=== PATIENT | female | born 1995 | race Caucasian/White ===

== ENCOUNTER 2018-03-15 10:45 | Outpatient (REF) | payer BC, SELFPAY ==
[2018-03-15 19:23] LABS: HCG Qual (Serum) Negative
== END 2018-03-15 11:05 ==
LOC: NCHCN 10:45
PROVIDERS: PCP Physician Assistant Medical; Visit Provider Physician Assistant Medical
DX: N91.2 Amenorrhea, unspecified (principal)
CPT/HCPCS: 84703

== ENCOUNTER 2018-07-03 20:27 | Outpatient (REF) | payer BC, SELFPAY ==
[2018-07-03 20:29] LABS: Bacteria Few HPF (Negative); C & S Indicated? Yes; Crystals Negative HPF (Negative); Epithelial Cells Few HPF (Negative); Mucus Trace (Negative); RBC Negative (0-2)
== END 2018-07-03 20:47 ==
LOC: NCHCN 20:27
PROVIDERS: PCP Physician Assistant Medical; Visit Provider Specialist/Technologist Athletic Trainer
DX: R10.11 Right upper quadrant pain (principal)
CPT/HCPCS: 81015; 87086

== ENCOUNTER 2018-11-05 17:17 | Emergency (ER) | payer BC, SELFPAY ==
[2018-11-05 17:21] VITALS: BP 139/75; PULSE 61; RESP 12; TEMP 36.8; O2SAT 99
--- NOTE | 2018-11-05 17:23 | DI.RAD_ITS ---
SYMPTOMS/DIAGNOSIS: PAIN AFTER BLUNT TRAUMA LEFT FOOT: Soft tissue swelling is noted over the dorsolateral portion of the foot. No fracture or dislocation is identified.
--- NOTE | 2018-11-05 17:25 | ED.GENADUL_ITS ---
Discharge Plan Disposition Patient Disposition: HOME Condition: Improving Discharge Details Chief Complaint: Orthopedic Clinical Impression: Strain of left foot Primary Care Provider: Ellyn Arriaza ED Provider: John Navarrete Home Meds and New Rx's Prescriptions: No Action No Known Home Meds RF: 0 Discharge Instructions Additional Instructions: Rest, ice, elevation and with compression to reduce pain and swelling. You may have ongoing spreading of the bruising. Wear hard soled shoe as needed for comfort. Tylenol 650 to 975 mg every 6 hours with ibuprofen 800 mg every 8 hours as needed for pain Medical Decision Making 22-year-old female presents from home with day 4 of left foot aching pain since dropping a hard piece of metal on it in her garage at the end of last week. Referred for x-ray which reveals soft tissue swelling but no underlying fracture. Will treat with Benjamín bandage, hard soled shoe. She is stable for discharge to home HPI General Mode of arrival: ambulatory . Date/Time Provider Initiated Documentation: 11/05/18 17:20 . Limitations to Documentation: no limitations . Information obtained by: patient . History of Present Illness 22 year old F presents to the emergency department with the chief complaint of Left foot pain and swelling after blunt trauma, described as moderate, Quality is described as aching and dull, and is localized to the lower extremity. Patient reports no radiation. Patient started experiencing this day(s) and it has been constant. No relieving factors improve symptom(s), No exacerbating factors reported . Patient notes no other symptoms.. Patient did receive the following treatments prior to arrival, NSAID Related Data Home Medications Medication Instructions Recorded Confirmed Unknown [No Known Home Meds] 11/05/18 11/05/18 Allergies Allergy/AdvReac Type Severity Reaction Status Date / Time No Known Allergies Allergy Unverified 11/05/18 17:24 General Stated Complaint: Orthopedic COURTNEY: 4 Review of Systems Review of Systems No other injury. Patient has otherwise been well [facility] Social History Smoking/Tobacco Use Status: Never Drug use: Never Substance use type: does not use Do you feel safe at home: Yes Do you feel safe in your relationship?: Yes Exam Narrative Exam Narrative: GEN: awake, alert, oriented 3. Pleasant, well groomed, interactive. HEAD: Normocephalic, atraumatic EXT: Full ROM, left foot dorsum with area of ecchymosis and tenderness of the midfoot Neuro: Grossly normal neurologic exam, conversant, interactive. Psych: Speech fluent, thoughts congruent, affect normal Course Vital Signs Temperature 36.8 C 11/05/18 17:21 Pulse 61 11/05/18 17:21 Respiratory Rate 12 11/05/18 17:21 Blood Pressure 139/75 11/05/18 17:21 Pulse Oximetry 99 11/05/18 17:21 Temperature 36.8 C 11/05/18 17:21 Pulse 61 11/05/18 17:21 Respiratory Rate 12 11/05/18 17:21 Respiratory Effort Non-Labored 11/05/18 17:22 Blood Pressure 139/75 11/05/18 17:21 Blood Pressure Position Sitting 11/05/18 17:21 Pulse Oximetry 99 11/05/18 17:21 Oxygen Delivery Method Room Air 11/05/18 17:21 Oxygen Flow Rate 0 11/05/18 17:21 Pain Level 5 11/05/18 17:23
--- NOTE | 2018-11-05 18:38 | DI.VRAD_ITS ---
EXAM: XR Left Foot Complete EXAM DATE/TIME: 11/05/2018 5:24 PM CLINICAL HISTORY: 22 years old, female; Other: Pain after blunt trauma; Additional info: Pain after blunt trauma , pain and swollen mid foot TECHNIQUE: Imaging protocol: XR Left foot. Views: 3 or more views. COMPARISON: No relevant prior studies available. FINDINGS: Bones/joints: Normal. Soft tissues: Soft tissue swelling is noted overlying the dorsum of the foot. IMPRESSION: Soft tissue swelling without evidence of underlying fracture. Dictated and Authenticated by: Prabha Newton MD. Ordering:CR Lopez MD
== END 2018-11-05 19:25 | disposition home or self-care (01) ==
PROVIDERS: Emergency Provider Emergency Medicine; PCP Physician Assistant Medical
DX: S96.912A Strain of unspecified muscle and tendon at ankle and foot level, left foot, initial encounter (principal); W20.8XXA Other cause of strike by thrown, projected or falling object, initial encounter
CPT/HCPCS: 99283; 73630

== ENCOUNTER 2019-01-15 20:50 | Outpatient (REF) | payer BC, SELFPAY ==
[2019-01-15 20:45] LABS: Hemoglobin A1C 5.5 % (4.5-6.2)
[2019-01-15 20:52] LABS: TSH (W/Ref FT4) 1.23 uIU/mL (0.36-3.74)
== END 2019-01-15 21:10 ==
LOC: NCHCN 20:50
PROVIDERS: PCP Physician Assistant Medical; Visit Provider Physician Assistant Medical
DX: R53.83 Other fatigue (principal); F41.9 Anxiety disorder, unspecified
CPT/HCPCS: 83036; 84443

== ENCOUNTER 2019-10-01 19:06 | Outpatient (REF) | payer BC, SELFPAY | END 2019-10-01 19:26 | LOC: NCHCN 19:06 | PROVIDERS: PCP Physician Assistant Medical; Visit Provider Physician Assistant Medical | DX: N39.0 Urinary tract infection, site not specified (principal) | CPT/HCPCS: 87077; 87086; 87186 ==

== ENCOUNTER 2020-01-20 15:49 | Outpatient (REF) | payer BC, SELFPAY ==
[2020-01-22 04:18] LABS: Patient Race White; SARS-CoV-2 RNA Undetected (Undetected); SARS-CoV-2 Specimen Source Nasopharynx
== END 2020-01-20 16:09 ==
LOC: NCHCN 15:49
PROVIDERS: PCP Physician Assistant Medical; Visit Provider Nurse Practitioner Family
DX: J34.89 Other specified disorders of nose and nasal sinuses (principal)
CPT/HCPCS: U0003

== ENCOUNTER 2020-02-10 11:58 | Outpatient (REF) | payer BC, SELFPAY ==
[2020-02-10 19:35] LABS: HCG Qual (Serum) Negative
== END 2020-02-10 12:18 ==
LOC: NCHCN 11:58
PROVIDERS: PCP Physician Assistant Medical; Visit Provider Physician Assistant Medical
DX: N91.2 Amenorrhea, unspecified (principal)
CPT/HCPCS: 84703

== ENCOUNTER 2020-06-15 16:42 | Outpatient (REF) | payer BC, SELFPAY | END 2020-06-15 16:43 | disposition home or self-care (01) | LOC: NCHCN 16:42 | PROVIDERS: PCP Physician Assistant Medical; Visit Provider Physician Assistant Medical | DX: N89.8 Other specified noninflammatory disorders of vagina (principal) | CPT/HCPCS: 87480; 87510; 87660 ==

== ENCOUNTER 2020-07-13 10:15 | Outpatient (REF) | payer BC, SELFPAY ==
--- NOTE | 2020-07-13 09:30 | PAPFT_PTH ---
PATIENT: Milagro Shah LOC: [facility] U#:[id number] AGE/SX: 24/F ROOM: RE07/13/[address]: Marisa Bonilla NP : 1995 BED: DIS: 07/13/2020 SPEC #: [id number] RECD: 07/13/20 12:55 STATUS: ANASTASIYA RILEY #: [id number] SCOTT: 07/13/20 09:[address]: Marisa Bonilla NP [facility] Cytology RECD BY: Karen Dawson ENTERED: 07/13/20 12:55 SP TYPE: PAPFT OTHR DR: Ellyn Arriaza Tissues: 1 - CX/ENDOCX FOR PAP SMEARS Procedures: PAP THIN PREP/[facility] Screening Comments: [id number] (CHLAMYDIA/GC)
[2020-07-14 15:01] LABS: Chlamydia Result Negative (Negative); GC Result Negative (Negative)
== END 2020-07-13 10:16 | disposition home or self-care (01) ==
LOC: LBN 10:15
PROVIDERS: PCP Physician Assistant Medical; Visit Provider Nurse Practitioner Women's Health
DX: Z12.4 Encounter for screening for malignant neoplasm of cervix (principal); Z11.3 Encounter for screening for infections with a predominantly sexual mode of transmission; R87.612 Low grade squamous intraepithelial lesion on cytologic smear of cervix (LGSIL)
CPT/HCPCS: 87491; 87591; 88142

== ENCOUNTER 2021-01-31 10:47 | Outpatient (REF) | payer BC, SELFPAY | END 2021-01-31 10:48 | disposition home or self-care (01) | LOC: NCHCN 10:47 | PROVIDERS: PCP Physician Assistant Medical; Visit Provider Nurse Practitioner Family | DX: N39.0 Urinary tract infection, site not specified (principal) | CPT/HCPCS: 87086 ==

== ENCOUNTER 2021-03-29 16:22 | Outpatient (REF) | payer BC, SELFPAY | END 2021-03-29 16:23 | disposition home or self-care (01) | LOC: NCHCN 16:22 | PROVIDERS: PCP Physician Assistant Medical; Visit Provider Nurse Practitioner Family | DX: N39.0 Urinary tract infection, site not specified (principal) | CPT/HCPCS: 87077; 87086; 87186 ==

== ENCOUNTER 2021-07-06 18:49 | Outpatient (REF) | payer BC, SELFPAY ==
[2021-07-06 20:28] LABS: HCG Quant, Pregnancy 42 mIU/mL (1-3)
== END 2021-07-06 18:50 | disposition home or self-care (01) ==
LOC: NCHCN 18:49
PROVIDERS: PCP Physician Assistant Medical; Visit Provider Physician Assistant Medical
DX: N91.2 Amenorrhea, unspecified (principal)
CPT/HCPCS: 84702